=== PATIENT | female | born 2005 | race Two or more races ===

== ENCOUNTER 2024-10-13 13:03 | Emergency (ER) | payer OTHER ==
[~2024-10-13] VITALS: Ht 167.6 cm; Wt 67.6 kg
[2024-10-13 14:08] VITALS: BP 98/64; O2SAT 97
[2024-10-13] MEDS ORDERED: ORPHENADRINE CITRATE 100 MG TABLET PO ONE (16:30)
[2024-10-13 16:49] LABS: BASO % 0.8 % (0.1-1.2); EOS # 0.08 (0.04-0.54); EOS % 1.1 % (0.7-7.0); LYMPH # 2.17 (1.18-3.74); LYMPH % 29.9 % (19.3-53.1); MEAN PLATELET VOLUME 9.80 fl (9.4-12.4); MONO # 0.76 (0.24-0.82); MONO % 10.5 % (4.7-12.5); NEUT # 4.17 (1.56-6.13); NEUT % 57.4 % (34.0-71.1); RED CELL DISTRIBUTION WIDTH 12.4 % (11.6-14.4)
[2024-10-13 17:03] LABS: INR 1.02
[2024-10-13 17:10] LABS: GLUCOSE FASTING 93 mg/dL (65-100)
[2024-10-13 17:11] LABS: OSMOLALITY SERUM 281 MOSM/KG (275-295)
[2024-10-13 17:12] LABS: BILIRUBIN TOTAL 0.56 mg/dL (0.3-1.2); GLOBULINA 3.3 G/DL (2.4-3.5)
[2024-10-13 17:13] LABS: ALT/SGPT 30 U/L (12-78); AST/SGOT 18 U/L (15-37)
[2024-10-13 17:19] LABS: URINE APPEARANCE Clear; URINE BACTERIA 1268.4 uL (0.0-1933); URINE BILIRRUBIN Negative (NEGATIVE); URINE BLOOD Negative; URINE COLOR Yellow; URINE EPITHELIAL CELLS 60.2 uL (0.0-38.8); URINE GLUCOSE Negative (NEGATIVE); URINE KETONE Negative (NEGATIVE); URINE LEUKOCYTE Small; URINE NITRATE Negative; URINE PROTEIN Negative (NEGATIVE); URINE RBC 6.1 uL (0.0-20.8); URINE UROBILINOGEN 0.2 E.U./dl; URINE WBC 22.9 uL (0.0-23.2)
[2024-10-13 17:22] LABS: BUN CREA RATIO 15 (7.0-25.0); CREATININE SERUM 0.82 mg/dL (0.55-1.02); GFR 88.00; HCG QUANTITATIVE < 1 mUI/mL (1-3)
[2024-10-13 17:46] LABS: URINE CAST 0.43 uL (0.0-1.40)
[2024-10-13] MEDS ORDERED: BACTRIM DS TAB1 EACH PO (23:32)
[2024-10-13] MEDS ORDERED: NORFLEX100MG PO (23:32)
[2024-10-13] MEDS ORDERED: KETO10TA2 PO (23:32)
[2024-10-13] MEDS ORDERED: PEPCID AC20 MG PO (23:32)
== END 2024-10-13 23:33 | disposition home or self-care (01) ==
LOC: ER 16:57
PROVIDERS: General Practice
DX: R10.32 Left lower quadrant pain (principal); N83.202 Unspecified ovarian cyst, left side